=== PATIENT | female | born 1965 | race Native Hawaiian/Other Pacific Islander ===

== ENCOUNTER 2016-08-04 17:17 | Outpatient (CLI) | payer OTHER | END 2016-08-04 17:18 | disposition home or self-care (01) | LOC: LABHHL 17:17 | PROVIDERS: ATTEND Internal Medicine Gastroenterology | DX: Z12.11 Encounter for screening for malignant neoplasm of colon (principal); D64.9 Anemia, unspecified; K21.9 Gastro-esophageal reflux disease without esophagitis; R14.0 Abdominal distension (gaseous); K58.9 Irritable bowel syndrome, unspecified; K30 Functional dyspepsia | CPT/HCPCS: 88305; 88342 ==